=== PATIENT | female | born 1985 | race Caucasian/White ===

== ENCOUNTER 2017-12-27 22:08 | Emergency (ER) | payer BC, OTHER ==
[2017-12-27 22:23] VITALS: BP 140/94; PULSE 82; TEMP 98.2; BMI 18.8
--- NOTE | 2017-12-27 22:34 | PDOC ---
History of Present Illness - General Chief Complaint: Pain, Acute Stated Complaint: LIGHTHEADED SORE THROAT Time Seen by Provider: 12/27/17 22:15 History Source: Patient Exam Limitations: No Limitations - History of Present Illness Initial Comments: 12/27/17 23:12 This is a very anxious 32-year-old female who comes in complaining of multiple complaints. Patient is complaining of a sore throat and some neck stiffness. Patient denies any fevers or chills. Patient denies any headache. Patient says she's had some intermittent ringing in her ears and lightheadedness she denies any chest pain, shortness of breath or any other associated symptoms Patient is convinced that she has meningitis because she goes to a college and came in to get checked out. Patient is otherwise healthy she has no risk factors for meningitis including no fever no known contacts of any but it has meningitis patient said there is no one in her school oriented alert for meningitis at her school. Patient is also concerned because her dog was sprayed by a skunk and she thinks maybe the toxic spray from the skunk is causing her symptoms. Patient is tearful and upset. PAST MEDICAL HISTORY: no significant history PAST SURGICAL HISTORY: no significant history FAMILY HISTORY: no pertinant history SOCIAL HISTORY: Pt lives with family and is employed. MEDICATIONS: reviewed ALLERGIES: As per nursing notes Review of Systems General: No fevers or chills, no weakness, no weight loss HEENT: No change in vision. No sore throat,. No ear pain CardioVascular: No chest pain or shortness of breath Respiratory:No cough, or wheezing. Gastrointestinal: no nausea, vomitting, diarrhea or constipation, No rectal bleeding Genitourinary: No dysuria, hematuria, or frequency Musculoskeletal: No joint or muscle pain or swelling Neurologic: No headache, vertigo, dizziness or loss of consciousness Psychiatric: nor depression Skin: No rashes or easy bruising Endocrine: no increased thirst or abnormal weight change Allergic: no skin or latex allergy All other systems reviewed and normal Exam: General: Well-nourished well-developed individual, no acute distress HEENT: Throat: There is some very mild erythema of the posterior oropharynx otherwise the tonsils are normal, and there is no exudate. Tympanic membranes are normal bilateral external ear canal is normal Neck: Supple, no meningeal signs, no lymphadenopathy Eyes::Pupils equal reactive and round, extraocular motion intact Chest: Nontender to palpation Cardiac: S1-S2 normal, regular rate and rhythm, no murmurs rubs or gallops Respiratory: Lungs clear to auscultation bilateral Abdomen: Soft, nondistended, normal bowel sounds, nontender to palpation diffusely Extremities: Warm, dry, no cyanosis, clubbing, or edema Skin: No rashes Neuro: Anxious, Alert and oriented x3, CN II - XII intact, nonfocal exam with normal strength, normal sensation, normal reflexes, normal gait, Psych: Normal mood and affect Medical decision making: This is a 32-year-old female with approximately one week of intermittent sore throat intermittent tinnitus intermittent not feeling well. Patient came in convinced and anxious that she had meningitis or a serious medical illness. In the emergency room patient has normal vitals she is not hypotensive, she is not tachycardic and she is afebrile Will obtain a brief workup including CBC and metabolic profile. Primarily to reassure patient that there is no concern for a serious medical illness. 12/27/17 23:49 Reevaluation post 1 L fluid patient feels much better but is not feeling need to urinate yet. Well give second liter of fluid CBC is normal there is no white count there is no left shift Chemistries are normal with the exception of a 1.3 total bili and a alkaline phosphatase of 29. Assessment and plan: This is a 32-year-old female who comes in very anxious and concerned about her health. Patient's symptoms most likely are secondary to a mild viral illness however in order to reassure patient I ordered a workup that was negativ. patient was given copies of her workup reassured and told to follow-up with a primary care doctor. In addition patient was also given 2 L of fluid which markedly improved first symptoms Past History - Past Medical History Allergies/Adverse Reactions: Allergies Allergy/AdvReac Type Severity Reaction Status Date / Time procaine [From Novocain] Allergy Verified 12/27/17 22:47 NOVACAINE Allergy Uncoded 07/02/14 21:17 Home Medications: Ambulatory Orders NK [No Known Home Medication] 12/27/17 COPD: No Other medical history: DENIES - Suicide/Smoking/Psychosocial Hx Smoking History: Never smoked Have you smoked in the past 12 months: No Information on smoking cessation initiated: No Hx Alcohol Use: No Drug/Substance Use Hx: No Substance Use Type: None *Physical Exam - Vital Signs Last Vital Signs Temp Pulse Resp BP Pulse Ox 98.2 F 82 16 140/94 100 12/27/17 22:19 12/27/17 22:19 12/27/17 22:19 12/27/17 22:19 12/27/17 22:19 ED Treatment Course - LABORATORY CBC & Chemistry Diagram: 12/27/17 23:10 12/27/17 23:10 *DC/Admit/Observation/Transfer Diagnosis at time of Disposition: Viral illness, Dehydration - Discharge Dispostion Disposition: HOME Condition at time of disposition: Stable Admit: No - Referrals - Patient Instructions Additional Instructions: Take Tylenol or Motrin as needed for the neck and throat discomfort. Drink 6-8 glasses of water a day and make sure you stay well hydrated. The ringing in your ears will likely resolve over the course of the next couple weeks. However if the ringing has persisted for more than 2 weeks you should follow up with your primary care doctor or see a neurologist. Return to the emergency department immediately with ANY new, persistent or worsening symptoms. Continue any medications as previously prescribed by your physician. You should follow up with your primary doctor as soon as possible regarding today's emergency department visit. . Please make sure your doctor reviews the results of your emergency evaluation. Thank you for coming to the Emergency Department today for your care. It was a pleasure to see you today. Please note that your evaluation is INCOMPLETE until you follow-up with your doctor. - Post Discharge Activity
[2017-12-27] MEDS ORDERED: SODIUM CHLORIDE 1,000 ML IV ONE ×2 (22:43→23:43)
[2017-12-27] MEDS ORDERED: MECLIZINE HCL 25 MG TABLET (FP) PO ONE (22:44)
[2017-12-27 23:21] LABS: BASO % 1.9 % (0-2.0); EOS % 2.7 % (0-4.5); HEMATOCRIT 41.6 % (32.4-45.2); HEMOGLOBIN 14.4 GM/dl (10.7-15.3); LYMPH % 35.2 % (8-40); MCH 32.2 pg (25.7-33.7); MCHC 34.7 g/dl (32.0-36.0); MEAN PLT VOLUME 9.2 fl (7.5-11.1); NEUT % 54.2 % (42.8-82.8); PLATELET COUNT 236 K/MM3 (134-434); RBC 4.48 M/mm3 (3.60-5.2); RDW 12.9 % (11.6-15.6); WHITE BLOOD COUNT 6.1 K/mm3 (4.0-10.8)
[2017-12-27 23:33] LABS: ALBUMIN 4.5 g/dl (3.5-5.0); ALK PHOS 29 U/L (32-92); ANION GAP 7 (8-16); BILIRUBIN,TOTAL 1.3 mg/dl (0.2-1.0); BLOOD UREA NITROGEN 14 mg/dl (7-18); CALCIUM 9.5 mg/dl (8.4-10.2); CHLORIDE 105 mmol/L (98-107); CO2 24 mmol/L (22-28); CREATININE 0.8 mg/dl (0.6-1.3); GLUCOSE,RANDOM 89 mg/dl (74-106); POTASSIUM 4.2 mmol/L (3.5-5.1); SGOT/AST 24 U/L (10-42); SGPT/ALT 14 U/L (10-40); SODIUM 136 mmol/L (136-145)
== END 2017-12-28 00:12 | disposition home or self-care (01) ==
LOC: FER 22:08
PROC: 3E0337Z Introduction of Electrolytic and Water Balance Substance into Peripheral Vein, Percutaneous Approach (ICD-10-PCS; principal; 2017-12-27)
DX: B34.9 Viral infection, unspecified (principal); E86.0 Dehydration
CPT/HCPCS: 36415; 80053; 85025; 99282-25